=== PATIENT | male | born 1950 | race Caucasian/White ===

== ENCOUNTER 2019-06-29 09:48 | Observation (INO) | payer MEDICARE, OTHER ==
[2019-06-29] MEDS ORDERED: FENTAnyl 50 MCG/ML VIAL IV ×2 (13:00)
[2019-06-29] MEDS ORDERED: ONDANSETRON 4 MG INJ IV ×2 (13:00→16:00)
[2019-06-29] MEDS ORDERED: HYDROmorphONE 1 MG/5 ML IV SYRINGE IV (13:00)
[2019-06-29] MEDS ORDERED: DIPHENHYDRAMINE 50 MG INJ IV (13:00)
[2019-06-29] MEDS ORDERED: ALBUTEROL 0.083% (NEB) 2.5 MG/3 ML AMP HHN (13:00)
[2019-06-29] MEDS ORDERED: MEPERIDINE 25 MG INJ IV (13:00)
[2019-06-29] MEDS ORDERED: METOCLOPRAMIDE 10 MG INJ IV (13:00)
[2019-06-29] MEDS ORDERED: GLYCOPYRROLATE 0.4 MG INJ (13:30)
[2019-06-29] MEDS ORDERED: DESFLURANE 15 MIN (13:30)
[2019-06-29] MEDS ORDERED: FENTAnyl 50 MCG/ML VIAL (13:34)
[2019-06-29] MEDS: POLYMYXIN/BACITRACIN 1L IRRIG (14:29)
[2019-06-29] MEDS: BUPIVACAINE 0.25%/EPI (SDV) 30 ML INJ (14:29)
[2019-06-29] MEDS: GELATIN SIZE 100 SPONGE (14:29)
[2019-06-29] MEDS: THROMBIN 5000 UNIT (RECOTHROM) VIAL (14:29)
[2019-06-29] MEDS: HEMOSTATIC MATRIX/ THROMBIN 1 EA SYG ZFS ×2 (14:30→15:19)
[2019-06-29] MEDS ORDERED: AL HYDROX/MG HYDROX/SIMETH 30 ML CUP PO (16:00)
[2019-06-29] MEDS ORDERED: ACETAMINOPHEN 325 MG TAB PO (16:00)
[2019-06-29] MEDS ORDERED: NACL 0.9% 3 ML SYG IV (16:00)
[2019-06-29] MEDS ORDERED: NALOXONE (0.4 MG/ML) INJ IV (16:00)
[2019-06-29] MEDS ORDERED: PROCHLORPERAZINE 10 MG TAB PO (16:00)
[2019-06-29] MEDS ORDERED: PROPOFOL 20 ML (16:10)
[2019-06-29] MEDS ORDERED: ROCURONIUM 50 MG INJ (16:11)
[2019-06-29] MEDS ORDERED: CEFAZOLIN 1 GM INJ (16:11)
[2019-06-29] MEDS ORDERED: LIDOCAINE 100 MG SYRINGE (16:11)
[2019-06-29] MEDS ORDERED: SUGAMMADEX SODIUM 200 MG/2 ML VIAL IV (16:11)
[2019-06-29] MEDS ORDERED: SUCCINYLCHOLINE CHLORIDE 100 MG/5 ML SYG IV (16:11)
[2019-06-29] MEDS: HYDROmorphONE 1 MG/5 ML IV SYRINGE IV (16:45)
[2019-06-29] MEDS: SOD CHLORIDE 0.9% 1,000 ML IV (18:12)
[2019-06-29] MEDS: CEFAZOLIN 1 GM/50 ML (PMX) 50 ML IVPB ×2 (18:12→23:58)
[2019-06-29] MEDS: HYDROmorphONE 0.5 MG/0.5 ML SYG IV (18:21)
[2019-06-29] MEDS: HYDROCODONE/APAP (5/325) TAB PO (21:46)
[2019-06-30] MEDS: CEFAZOLIN 1 GM/50 ML (PMX) 50 ML IVPB ×2 (05:04→12:29)
[2019-06-30] MEDS: SOD CHLORIDE 0.9% 1,000 ML IV (05:04)
[2019-06-30] MEDS: HYDROCODONE/APAP (5/325) TAB PO ×2 (05:08→13:48)
[2019-06-30 05:32] LABS: HEMATOCRIT 39.7 % (42.0-52.0); HEMOGLOBIN 12.8 g/dl (14.0-18.0)
[2019-06-30 06:22] LABS: ANION GAP 9 (5-13); BLOOD UREA NITROGEN 17 mg/dl (7-20); CALCIUM 8.7 mg/dl (8.4-10.2); CARBON DIOXIDE 26 mmol/L (21-31); CHLORIDE 106 mmol/L (97-110); CREATININE 1.14 mg/dl (0.61-1.24); Estimated GFR > 60 mL/min (>60); GLUCOSE 93 mg/dl (70-220); POTASSIUM 4.1 mmol/L (3.5-5.1); SODIUM 141 mmol/L (135-144)
[2019-06-30] MEDS: HYDROmorphONE 0.5 MG/0.5 ML SYG IV ×2 (08:05→15:25)
[2019-06-30] MEDS: DOCUSATE SODIUM 100 MG CAP PO (09:47)
== END 2019-06-30 16:03 | disposition home or self-care (01) ==
LOC: SDS 09:48 → REC 16:01 → MS1 17:44
DX: M51.16 Intervertebral disc disorders with radiculopathy, lumbar region (principal); M48.07 Spinal stenosis, lumbosacral region
CPT/HCPCS: 63030; 72100; 80048; 85014; 85018; 88304; 97116; 97162; 97530